=== PATIENT | male | born 1945 | race Caucasian/White ===

== ENCOUNTER → 2017-01-26 | Outpatient (CLI) | payer OTHER, MEDICARE | LOC: BMCIMAGING 13:52 | PROVIDERS: ATTEND Nurse Practitioner Adult Health | DX: J44.9 Chronic obstructive pulmonary disease, unspecified (principal) ==

== ENCOUNTER 2017-01-28 16:04 | Inpatient (IN) | payer OTHER, MEDICARE ==
[2017-01-28] MEDS ORDERED: IPRATROPIUM/ALBUTEROL 3 ML DEYVIAL ONE (16:20)
--- NOTE | 2017-01-28 16:22 | CPEKG ---
Heart Rate: 73 RR Interval: 822 P-R Interval: 184 QRSD Interval: 92 QT Interval: 420 QTC Interval: 463 P [place]: 18 QRS [place]: -45 T Wave [place]: 56 EKG Severity - ABNORMAL ECG - EKG Impression: SINUS RHYTHM EKG Impression: ATRIAL PREMATURE COMPLEX EKG Impression: LAD, CONSIDER LEFT ANTERIOR FASCICULAR BLOCK EKG Impression: ANTEROLATERAL INFARCT, OLD Electronically Signed By: Anne Marie Benedict 28-Jan-2017 22:18:35
[2017-01-28] MEDS ORDERED: IPRATROPIUM/ALBUTEROL 3 ML DEYVIAL IH ONE (16:24)
[2017-01-28 16:31] LABS: % IMMATURE GRANULYOCYTES 0.5 % (0.0-1.1); ABSOLUTE IMMATURE GRANULOCYTES 0.06 10^3/uL (0.00-0.10); ADD DIFF? NO; ADD MORPH? NO; ADD SCAN? NO; ATYPICAL LYMPHOCYTE FLAG 20 (0-99); FRAGMENT RBC FLAG 0 (0-99); HEMATOCRIT 44.7 % (40.0-51.0); HEMOGLOBIN 16.2 g/dL (13.7-17.5); LEFT SHIFT FLG 20 (0-99); LIPEMIA HEMOLYSIS FLAG 90 (0-99); MEAN CELL HEMOGLOBIN 33.3 pg (27.9-34.1); MEAN CELL HEMOGLOBIN CONCENTR. 36.2 g/dL (32.4-36.7); MEAN PLATELET VOLUME 10.5 fL (8.7-11.7); PLATELET CLUMPS FLAG 0 (0-99); PLATELET COUNT 243 10^3/uL (150-400); RED BLOOD CELL COUNT 4.86 10^6/uL (4.40-6.38); RED CELL DISTRIBUTION WIDTH 12.1 % (11.5-15.2)
[2017-01-28 16:42] LABS: ANION GAP 11 mEq/L (8-16); CALCIUM 9.3 mg/dL (8.5-10.4); CARBON DIOXIDE 26 mEq/l (22-31); CHLORIDE 102 mEq/L (97-110); CREATININE 0.9 mg/dL (0.7-1.3); GLOMERULAR FILTRATION RATE > 60; GLUCOSE 115 mg/dL (70-100); POTASSIUM 4.4 mEq/L (3.5-5.2); SODIUM 139 mEq/L (134-144)
--- NOTE | 2017-01-28 16:46 | EDPHY ---
H & P Time Seen by Provider: 01/28/17 16:32 HPI/ROS: CHIEF COMPLAINT: Cough, shortness of breath. HISTORY OF PRESENT ILLNESS: This patient is a healthy 71 year old male complaining of persistent cough and shortness of breath onset one week ago. He was evaluated at urgent care two days ago and prescribed Z-pack but has noted worsening shortness of breath. Chest x-ray at that time was negative for pneumonia. The cough is productive with associated yellow sputum.Associated with rhinorrhea and intermittent mild subjective fever. The shortness of breath is persistent and associated with fatigue and generalized weakness. No nausea or vomiting. He denies history of asthma or emphysema. He received a flu vaccination this year. REVIEW OF SYSTEMS: A 10 point review of systems was performed and is negative with the exception of the elements mentioned in the history of present illness. Past Medical/Surgical History: Hyperlipidemia (Lipitor). Social History: PCP Dr. Barajas. Former smoker, quit 40 years ago. Moderate alcohol use. Lives in [place]. Smoking Status: Never smoked Physical Exam: General Appearance: Alert, mild tachypnea Eyes: Pupils equal and round, no conjunctival pallor or injection ENT, Mouth: Mucous membranes moist Neck: Normal inspection Respiratory: Diffuse expiratory wheezing Cardiovascular: Regular rate and rhythm Gastrointestinal: Abdomen is soft and non-tender Neurological: A&O, nonfocal exam Skin: Warm and dry Extremities: Nontender, no pedal edema Psychiatric: Mood and affect normal Constitutional: Initial Vital Signs Temperature (C) 36.6 C 01/28/17 16:07 Heart Rate 81 01/28/17 16:07 Respiratory Rate 20 01/28/17 16:07 Blood Pressure 165/87 H 01/28/17 16:07 O2 Sat (%) 85 L 01/28/17 16:07 O2 Delivery Mode Oxymask O2 (L/minute) 3 Allergies/Adverse Reactions: amoxicillin [Amoxicillin] Allergy (Intermediate, Verified 07/06/11 16:44) Vomiting Home Medications: Medication Instructions Recorded Atorvastatin Calcium [Lipitor 20 10 mg PO DAILY 01/28/17 mg (*)] Azithromycin [Zithromax] 250 mg PO DAILY@17 01/28/17 Glucosam/Chondr/Collagn/Hyalur 1 each PO DAILY 01/28/17 [Glucosamine & Chondroitin Cap] Medical Decision Making - Diagnostics EKG Interpretation: EKG interpreted by me reveals sinus rhythm, rate 73. PAC, LAD, evidence of old anterolateral infarct. Imaging Results: CXR: LLL infiltrate Imaging: I viewed and interpreted images myself ED Course/Re-evaluation: 71 y/o male presents with one week history of cough and shortness of breath. Exam reveals diffuse wheezes. SpO2 84% at triage. Patient is feeling better following DuoNeb administration. His SpO2 dropped back to 87% when O2 was discontinued. Restarted oxygen by nasal cannula. Plan for additional neb. IV established. Plan for labs including CBC, chemistries, respiratory pathogen PCR , lactic acid, blood cultures. 125mg IV Solu-Medrol given. Discussed admission for management of symptoms due to pneumonia and hypoxia. The patient is comfortable with this plan. Reviewed chest x-ray from 01/26/17, two days ago. Plan for EKG, repeat chest x-ray. Chest x-ray positive for pneumonia. 750mg IV Levaquin given. Does not meet SIRS criteria. RT evaluated pt, given continuous albuterol neb, felt better after neb. Chest: expir wheezing perists, better air exchange 17:51 Consulted with hospitalist service. Dr. Beaver accepts admission for pneumonia and bronchospasm. Differential Diagnosis: includes though not limited to pulm edema, PE, ACS, PTX, bronchitis - Data Points Laboratory Results: Laboratory Results 01/29/17 05:06 01/29/17 05:06 Microbiology Results: MICROBIOLOGY 01/28/17 17:11 Blood Blood Culture - Preliminary 01/28/17 17:30 Blood Blood Culture - Preliminary Medications Given: Albuterol (Proventil Neb) 3 ml IH Q4HRS PRN PRN Reason: Short of Breath/Dyspnea Stop: 07/27/17 18:05 Last Admin: 01/29/17 10:24 Dose: 3 ml Albuterol/Ipratropium (Duoneb) 3 ml IH Q6HRS KATHLEEN Stop: 07/28/17 17:59 Last Admin: 01/31/17 05:37 Dose: 3 ml Atorvastatin Calcium (Lipitor) 10 mg PO DAILY KATHLEEN Stop: 07/28/17 08:59 Last Admin: 01/31/17 09:08 Dose: 10 mg Benzonatate (Tessalon Pearles) 200 mg PO TID PRN PRN Reason: Cough, Mild Stop: 07/28/17 15:59 Last Admin: 01/31/17 09:08 Dose: 200 mg Glucosamine/Chondroitin (Glucosamine/Chondroitin) 1 each PO DAILY [facility] Stop: 07/28/17 08:59 Last Admin: 01/31/17 09:08 Dose: 1 each Guaifenesin/Codeine Phosphate (Robitussin Ac) 10 ml PO Q6HRS PRN PRN Reason: Cough, Moderate Stop: 07/27/17 18:05 Last Admin: 01/31/17 04:17 Dose: 10 ml Levofloxacin (Levaquin) 750 mg PO DAILY AT 10AM KATHLEEN PRN Reason: Protocol Stop: 03/02/17 09:59 Last Admin: 01/31/17 09:08 Dose: 750 mg Prednisone (Prednisone) 40 mg PO DAILY [facility] Stop: 07/28/17 15:59 Last Admin: 01/31/17 09:08 Dose: 40 mg Discontinued Medications Albuterol (Proventil Neb) 3 ml IH EDNOW ONE Stop: 01/28/17 17:02 Last Admin: 01/28/17 17:21 Dose: 3 ml Albuterol/Ipratropium (Duoneb) 3 ml IH EDNOW ONE Stop: 01/28/17 16:25 Last Admin: 01/28/17 17:21 Dose: 3 ml Sodium Chloride (Ns) 1,000 mls @ 0 mls/hr IV ONCE ONE; Wide Open PRN Reason: Protocol Stop: 01/28/17 17:02 Last Admin: 01/28/17 17:22 Dose: 1,000 mls Levofloxacin/Dextrose (Levaquin 750 Mg (Premix)) 150 mls @ 100 mls/hr IV EDNOW ONE PRN Reason: Protocol Stop: 01/28/17 19:16 Last Admin: 01/28/17 19:49 Dose: 150 mls Levofloxacin/Dextrose (Levaquin 750 Mg (Premix)) 150 mls @ 100 mls/hr IV DAILY KATHLEEN PRN Reason: Protocol Stop: 02/28/17 08:59 Last Admin: 01/30/17 09:22 Dose: 150 mls Methylprednisolone Sodium Succinate (Solu-Medrol) 125 mg IVP EDNOW ONE Stop: 01/28/17 17:02 Last Admin: 01/28/17 17:22 Dose: 125 mg Pneumococcal 13-Valent Conj Vacc (Prevnar 13 Syringe) 0.5 ml IM .ONCE ONE Stop: 01/30/17 17:01 Last Admin: 01/30/17 18:41 Dose: 0.5 ml Departure - Departure Disposition: [facility] Inpatient Acute Clinical Impression: Acute hypoxemic respiratory failure Pneumonia Qualifiers: Pneumonia type: due to unspecified organism Laterality: left Lung location: lower lobe of lung Qualified Code(s): J18.1 - Lobar pneumonia, unspecified organism Condition: Fair Report Scribed for: Anne Marie Benedict Report Scribed by: Tonie Chapman Date of Report: 01/28/17 Time of Report: 16:46 Physician Review and Approval Statement: 01/28/17 16:46 Portions of this note were transcribed by a diagnostic medical sonographer. I personally performed a history, physical exam, medical decision making, and confirmed accuracy of information the transcribed note.
[2017-01-28] MEDS ORDERED: ALBUTEROL 3 ML DEYVIAL IH ONE (17:01)
[2017-01-28] MEDS ORDERED: methylPREDNISolone SOD SUCC 125 MG/2 ML VIAL IVP ONE (17:01)
[2017-01-28] MEDS ORDERED: NS 1,000 ML IV ONE (17:01)
[2017-01-28] MEDS ORDERED: ACETAMINOPHEN 325 MG TAB PO PRN (18:05)
[2017-01-28] MEDS ORDERED: ONDANSETRON DISINTEGRATING 4 MG TAB PO PRN (18:05)
[2017-01-28] MEDS ORDERED: ONDANSETRON 4 MG/2 ML VIAL IVP PRN (18:05)
[2017-01-28] MEDS ORDERED: ALBUTEROL 3 ML DEYVIAL IH PRN (18:06)
--- NOTE | 2017-01-28 18:35 | GHP ---
[f rep st] HISTORY AND PHYSICAL DATE OF ADMISSION: 01/28/2017 HISTORY OF PRESENT ILLNESS: The patient is a pleasant 71-year-old gentleman, who enjoys excellent he alth, who presents with cough and increased work of breathing. He has been sick for about 4 or 5 day s. He saw urgent care a couple days ago where he had a chest x-ray, which was apparently negative fo r pneumonia and looking at it now myself I see there is no infiltrate. He was prescribed a Z-Hema at that time. He re-presents today with increased work of breathing and cough as well as low-grade temp eratures and generalized malaise. He was found to be hypoxic at 85% on room air upon presentation. He denies difficulty with swallowing, blackouts. He was a smoker 40 years ago but really only smoked for about 10 years. He has not had heart failure symptoms such as lower extremity edema, PND, or or thopnea. REVIEW OF SYSTEMS: Complete 10-point review of systems conducted, negative except as noted in the HP I. PAST MEDICAL HISTORY: Hyperlipidemia. ALLERGIES: Amoxicillin. HOME MEDICATIONS: Lipitor. SOCIAL HISTORY: Alcohol a couple times a week. No tobacco. Lives in [place]. FAMILY HISTORY: His parents are . PHYSICAL EXAMINATION: VITAL SIGNS: Temp 36.6, blood pressure 165/87, pulse 81, breathing 20 times a minute, 85% on 2 L. GENERAL: Coughing, no acute distress. HEENT: Sclerae anicteric. Oropharynx clear. Mucous membranes are moist. NECK: Supple, without lymphadenopathy or JVD. LUNGS: Rhonchor ous bilaterally. He has some wheezes bilaterally. There are decreased breath sounds at the bases le ft greater than right. HEART: S1, S2. Not tachycardic. ABDOMEN: Soft, nontender, nondistended. LOWER EXTREMITIES: With out edema. Calves are nontender. SKIN: Without rash. NEUROLOGIC: Exam is nonfocal. LABORATORY DATA: White count 13 with a left shift, hematocrit 44, platelets are 243,000. Venous lac saba is 1.4. Chem 7 normal. Glucose 115. Chest x-ray, interpreted by me, shows a left lower lobe and lingular pneumonia. EKG, interpreted by me, shows sinus at 73 with left axis deviation, normal intervals. No ST or T-wav e changes. I have discussed the case with Dr. Carmen Benedict. ASSESSMENT/PLAN: A 71-year-old gentleman who presents with pneumonia and acute hypoxemic respiratory failure. 1. Pneumonia. Left lower lobe community-acquired. We will go ahead and start levofloxacin. 2. Acute hypoxemic respiratory failure. The patient is hypoxic secondary to airspace disease. We w ill provide supplemental oxygen and nebulizers. 3. Cough. He has fairly significant cough, provided with Robitussin. 4. Prophylaxis. Pharmacologic prophylaxis indicated if in the hospital longer than 48 hours. For n ow, will start with SCDs. 5. Hyperlipidemia. Hold the statin. DISPOSITION: Observation status. /[id number]/MODL
[2017-01-28] MEDS: guaiFENesin/CODEINE PHOS 10 ML UDCUP PO PRN (20:51)
[2017-01-29] MEDS: guaiFENesin/CODEINE PHOS 10 ML UDCUP PO PRN ×2 (05:10→15:50)
[2017-01-29 05:31] LABS: % IMMATURE GRANULYOCYTES 0.5 % (0.0-1.1); ABSOLUTE IMMATURE GRANULOCYTES 0.05 10^3/uL (0.00-0.10); ADD DIFF? NO; ADD MORPH? NO; ADD SCAN? NO; ATYPICAL LYMPHOCYTE FLAG 30 (0-99); FRAGMENT RBC FLAG 0 (0-99); HEMATOCRIT 42.1 % (40.0-51.0); HEMOGLOBIN 14.7 g/dL (13.7-17.5); LEFT SHIFT FLG 10 (0-99); LIPEMIA HEMOLYSIS FLAG 90 (0-99); MEAN CELL HEMOGLOBIN 32.5 pg (27.9-34.1); MEAN CELL HEMOGLOBIN CONCENTR. 34.9 g/dL (32.4-36.7); MEAN CELL VOLUME 93.1 fL (81.5-99.8); MEAN PLATELET VOLUME 10.8 fL (8.7-11.7); PLATELET CLUMPS FLAG 10 (0-99); PLATELET COUNT 213 10^3/uL (150-400); RED BLOOD CELL COUNT 4.52 10^6/uL (4.40-6.38)
[2017-01-29 05:41] LABS: ANION GAP 13 mEq/L (8-16); CALCIUM 9.1 mg/dL (8.5-10.4); CARBON DIOXIDE 23 mEq/l (22-31); CHLORIDE 109 mEq/L (97-110); CREATININE 0.8 mg/dL (0.7-1.3); GLOMERULAR FILTRATION RATE > 60; GLUCOSE 200 mg/dL (70-100); POTASSIUM 4.6 mEq/L (3.5-5.2); SODIUM 145 mEq/L (134-144)
[2017-01-29] MEDS: GLUCOSAMINE/CHONDROITIN CAP PO SCH (10:00)
[2017-01-29] MEDS: ATORVASTATIN CALCIUM 10 MG TAB PO SCH (10:00)
--- NOTE | 2017-01-29 15:16 | HOSPPROG ---
Hospitalist Progress Note Assessment/Plan: DIAGNOSES: -Acute interstitial pneumonia with Rhinovirus isolated by PCR; suspect is a viral pneumonia, but secondary bacterial pneumonia not ruled out, less likely non infectious inflammatory pneumonitis -Acute hypoxemic resp failure -smoking history, strongly suspect underlying COPD, no longer smokes PLANS: -Continue empiric abx for now and follow cultures -continue oxygen and resp treatments, will make bronchodilators scheduled -add steroid -yearly flu shot, and see his primary care physician after this admission regarding ensuring he is up-to-date on pneumonia vaccine -in 2-3 months when he is completely resolved from this illness, would get pulmonary function test and possibly other assessments for suspect COPD, with institution of any indicated monitoring and preventive care after that High risk medical condition with acute respiratory failure SUBJECTIVE: Still quite short of breath even with oxygen on and using 4 L, otherwise cough is a little bit less Nurse notes that he was wheezing quite severely earlier today before bronchodilator Greater than 35 min spent with the patient during to visits at the bedside along with nurse for care coordination OBJECTIVE Vitals reviewed: Stable without fever at this time Exam: alert oriented skin warm dry color ok resps still mildly labored lungs diminished breath sounds with some wheeze on expiration, and mildly prolonged expiration heart regular abd soft nondistended nontender, bowel sounds present limbs warm, no edema iv site ok Laboratory data: White blood cell count still high but improved, other some blood cell count and chemistry data stable Culture data: Respiratory pathogen panel positive for rhino virus PCR Blood cultures pending with no growth to date Objective: Vital Signs Temp Pulse Resp BP Pulse Ox 36.9 C 61 16 148/77 H 91 L 01/29/17 12:55 01/29/17 12:55 01/29/17 12:55 01/29/17 12:55 01/29/17 12:55 Laboratory Results 01/29/17 05:06 01/29/17 05:06 01/28/17 01/29/17 01/30/17 06:59 06:59 06:59 Intake Total 550 Balance 550 ICD10 Worksheet Patient Problems: Problems Problem Status Onset Pneumonia Acute
--- NOTE | 2017-01-29 16:12 | PDMN ---
Medical Necessity Medical necessity: C/M review: est. > 2 MN LOS for eval and TX of acute interstitial pneumonia with Rhinovirus isolated by PCR, acute hypoxemic respiratory failure requiring ongoing IV empiric antibiotics, Duonebs, initiate oral steroid, pulse oximetry, supplemental O2, respiratory treatments, comorbid smoking history, suspect underlying COPD per 01/29/2017 Hospitalist progress note.
--- NOTE | 2017-01-29 16:13 | ASMTCMCOM ---
CM Note CM Note Notes: Pt admitted with PNA. Lives with his . No PT/OT orders in chart. CM will follow for any d/c needs. Date Signed: 01/29/2017 04:13 PM Electronically Signed By:ROGER Cruz
[2017-01-29] MEDS: predniSONE 20 MG TAB PO SCH (16:57)
[2017-01-29] MEDS: IPRATROPIUM/ALBUTEROL 3 ML DEYVIAL IH SCH ×2 (19:02→21:43)
[2017-01-30] MEDS: IPRATROPIUM/ALBUTEROL 3 ML DEYVIAL IH SCH ×4 (06:00→22:19)
[2017-01-30] MEDS: predniSONE 20 MG TAB PO SCH (09:25)
[2017-01-30] MEDS: GLUCOSAMINE/CHONDROITIN CAP PO SCH (09:26)
[2017-01-30] MEDS: ATORVASTATIN CALCIUM 10 MG TAB PO SCH (09:26)
[2017-01-30] MEDS ORDERED: PNEUMOC 13-VAL CONJ-DIP CRM/PF 0.5 ML SYR IM ONE ×2 (14:18→17:00)
--- NOTE | 2017-01-30 16:23 | HOSPPROG ---
Hospitalist Progress Note Assessment/Plan: DIAGNOSES: -Acute interstitial pneumonia with Rhinovirus isolated by PCR; suspect is a viral pneumonia, but secondary bacterial pneumonia not ruled out, less likely non infectious inflammatory pneumonitis -Acute hypoxemic resp failure -smoking history, strongly suspect underlying COPD, no longer smokes PLANS: -Continue empiric abx for now and follow cultures -continue oxygen and resp treatments -continue steroid -yearly flu shot, and see his primary care physician after this admission regarding ensuring he is up-to-date on pneumonia vaccine -in 2-3 months when he is completely resolved from this illness, would get pulmonary function test and possibly other assessments for suspect COPD, with institution of any indicated monitoring and preventive care after that High risk medical condition with acute respiratory failure SUBJECTIVE: Less malaise today, better energy and better appetite. However still remains with significant dyspnea on oxygen at rest and a lot of coughing with cough now much more productive OBJECTIVE Vitals reviewed: Stable without fever at this time Exam: alert oriented skin warm dry color ok resps still mildly labored lungs less wheeze and less prolonged expiration, some rales at bases particularly left heart regular abd soft nondistended nontender, bowel sounds present limbs warm, no edema iv site ok Culture data: Respiratory pathogen panel positive for rhino virus PCR Blood cultures pending with no growth to date Objective: Vital Signs Temp Pulse Resp BP Pulse Ox 36.6 C 61 17 137/80 H 91 L 01/30/17 15:53 01/30/17 15:53 01/30/17 15:53 01/30/17 15:53 01/30/17 15:53 01/29/17 01/30/17 01/31/17 06:59 06:59 06:59 Intake Total 2200 450 Balance 2200 450 ICD10 Worksheet Patient Problems: Problems Problem Status Onset Pneumonia Acute
[2017-01-31] MEDS: guaiFENesin/CODEINE PHOS 10 ML UDCUP PO PRN ×3 (04:17→21:27)
[2017-01-31] MEDS: IPRATROPIUM/ALBUTEROL 3 ML DEYVIAL IH SCH ×4 (05:37→20:40)
[2017-01-31] MEDS: predniSONE 20 MG TAB PO SCH (09:08)
[2017-01-31] MEDS: GLUCOSAMINE/CHONDROITIN CAP PO SCH (09:08)
[2017-01-31] MEDS: ATORVASTATIN CALCIUM 10 MG TAB PO SCH (09:08)
[2017-01-31] MEDS: BENZONATATE 100 MG CAP PO PRN ×2 (09:08→21:27)
--- NOTE | 2017-01-31 10:50 | HOSPPROG ---
Hospitalist Progress Note Assessment/Plan: Acute hypoxemic respiratory failure secondary to viral PNA - +rhino/ enterovirus. 3 LPM. Cont nebs, O2, prednisone. Will finish course of Levaquin , change to oral. Outpt PFT's when back to baseline. Full code DVT PPLX - Lovenox Dispo - cont inpt. Possible dc in +/- home O2 Subjective: Pt feels a little better. Still with productive cough and some wheezing. Not ambulating much. No CP or SOB at rest. Non-smoker. Objective: Vital Signs Temp Pulse Resp BP Pulse Ox 36.9 C 59 L 17 116/75 92 01/31/17 08:13 01/31/17 08:13 01/31/17 08:13 01/31/17 08:13 01/31/17 08:13 01/30/17 01/31/17 02/01/17 05:59 05:59 05:59 Intake Total 2200 600 Balance 2200 600 - Physical Exam Constitutional: no apparent distress Eyes: PERRL Ears, Nose, Mouth, Throat: moist mucous membranes Cardiovascular: regular rate and rhythym Respiratory: no respiratory distress, reduced air movement, expiratory wheeze Gastrointestinal: normoactive bowel sounds, soft, non-tender abdomen Skin: warm Musculoskeletal: full muscle strength Neurologic: AAOx3 Psychiatric: interacting appropriately ICD10 Worksheet Patient Problems: Problems Problem Status Onset Acute hypoxemic respiratory failure Acute Pneumonia Acute chronic disease mgmt/transitional care Acute
[2017-01-31] MEDS: ENOXAPARIN 40 MG/0.4 ML SYR SC SCH (12:55)
[2017-02-01] MEDS: IPRATROPIUM/ALBUTEROL 3 ML DEYVIAL IH SCH ×4 (06:21→20:34)
[2017-02-01] MEDS: predniSONE 20 MG TAB PO SCH (09:02)
[2017-02-01] MEDS: GLUCOSAMINE/CHONDROITIN CAP PO SCH (09:02)
[2017-02-01] MEDS: ATORVASTATIN CALCIUM 10 MG TAB PO SCH (09:02)
[2017-02-01] MEDS: ENOXAPARIN 40 MG/0.4 ML SYR SC SCH (09:03)
[2017-02-01] MEDS ORDERED: GUAIFENESIN/DM 10 ML UDCUP PO PRN ×2 (09:51→09:52)
--- NOTE | 2017-02-01 09:54 | HOSPPROG ---
Hospitalist Progress Note Assessment/Plan: Acute hypoxemic respiratory failure secondary to rhino/enterovirus +/- PNA. Suspect underlying COPD given tobacco hx. Currently on 4 LPM. Still quite a bit of wheezing. Cont nebs, O2, prednisone, day 5/5. Will complete short 5 day course of Levaquin, MAR adjusted, last dose tomorrow. Needs outpt PFT's when back to baseline. Likely needs inhalers on discharge. Hyperlipidemia - cont statin Full code DVT PPLX - Lovenox Dispo - cont inpt. May need home O2 Subjective: Pt feels better, didn't cough as much overnight, was able to sleep. Denies fevers/chills. No CP or SOB at rest. He is still coughing quite a bit during my exam with sats low 90's on 4 LPM. Ambulating, appetite good. Objective: Vital Signs Temp Pulse Resp BP Pulse Ox 36.4 C 63 19 122/77 H 93 02/01/17 08:50 02/01/17 08:50 02/01/17 08:50 02/01/17 08:50 02/01/17 08:50 01/31/17 02/01/17 02/02/17 05:59 05:59 05:59 Intake Total 600 2300 Balance 600 2300 - Physical Exam Constitutional: no apparent distress Eyes: PERRL Ears, Nose, Mouth, Throat: moist mucous membranes Cardiovascular: regular rate and rhythym, no murmur, rub, or gallop Respiratory: no respiratory distress, reduced air movement, expiratory wheeze Skin: warm Musculoskeletal: full muscle strength Neurologic: AAOx3 Psychiatric: interacting appropriately ICD10 Worksheet Patient Problems: Problems Problem Status Onset Acute hypoxemic respiratory failure Acute chronic disease mgmt/transitional care Acute Pneumonia Acute
[2017-02-01] MEDS ORDERED: guaiFENesin 600 MG TAB.ER PO SCH (10:00)
[2017-02-01] MEDS: guaiFENesin 600 MG TAB.ER PO SCH ×2 (16:41→21:45)
--- NOTE | 2017-02-01 17:38 | ASMTCMCOM ---
CM Note CM Note Notes: Patient will most likely discharge home on O2 Independent. Patient will be followed by Transitional Care on discharge. Possible discharge on . Case management will follow. Date Signed: 02/01/2017 05:38 PM Electronically Signed By:ROGER Gore
[2017-02-02] MEDS: IPRATROPIUM/ALBUTEROL 3 ML DEYVIAL IH SCH ×2 (05:33→10:15)
[2017-02-02 09:35] VITALS: BP 146/84; RESP 15; TEMP 97.9
[2017-02-02] MEDS: ENOXAPARIN 40 MG/0.4 ML SYR SC SCH (10:06)
[2017-02-02] MEDS: GLUCOSAMINE/CHONDROITIN CAP PO SCH (10:07)
[2017-02-02] MEDS: predniSONE 20 MG TAB PO SCH (10:07)
[2017-02-02] MEDS: guaiFENesin 600 MG TAB.ER PO SCH (10:08)
[2017-02-02] MEDS: ATORVASTATIN CALCIUM 10 MG TAB PO SCH (10:08)
[2017-02-02 10:18] VITALS: PULSE 58; O2SAT 93
--- NOTE | 2017-02-02 11:25 | PDHOMEO2F ---
Home Oxygen Face to Face Home Orders: I certify that a physician or a nurse practitioner or physician's engineering assistant has had a [id number] encounter with this patient on the date of this order due to the diagnosis listed, which relates to the primary reason the patient requires home oxygen. Alternative treatments have been tried, or considered, and deemed ineffective. It is anticipated that supplemental oxygen will result in improvement with treatment. Home oxygen qualifying diagnosis: Suspected COPD Home oxygen secondary diagnosis: Reactive Airway Exacerbation SpO2 on room air (%): 89 Frequency of home oxygen needed: continuous Home oxygen liters per minute: 3 Home oxygen delivery device: nasal cannula Concentrator: Yes E-tanks for mobility and back up: Yes If ordering portable O2, is the patient mobile in the home?: Yes I certify that, based on these findings, the home oxygen is medically necessary for this patient for the following length of time. Length of time home oxygen needed: 1 month
--- NOTE | 2017-02-02 14:01 | ASDISCHSUM ---
Discharge Information Plan Status:Home with No Needs Medically Cleared to Leave: Discharge Date: CM D/C Disposition: ADT D/C Disposition:Home, Routine, Self-Care Projected Discharge Date: Transportation at D/C: Discharge Delay Reason: Follow-Up Date: Discharge Slot: Final Diagnosis: Placement Information Patient Contact Information Contact Name:MOMO Relationship: Address:[address] [place] [address] Work Phone: City:[place] [facility] Phone: State/Zip Code:[place] [address] Email: Financial Information Financial Class: Primary Plan Desc:MEDICARE INPATIENT Primary Plan Number:[id number] Secondary Plan Desc:BERTHA/DOUGLAS SUPPLEMENT Secondary Plan Number:[id number] Assessment Information [facility] CM Progress Note CM Note CM Note Notes: Pt admitted with PNA. Lives with his . No PT/OT orders in chart. CM will follow for any d/c needs. Date Signed: 01/29/2017 04:13 PM Electronically Signed By:ROGER Cruz [facility] CM Progress Note CM Note CM Note Notes: Patient will most likely discharge home on Independent. Patient will be followed by Transitional Care on discharge. Possible discharge on . Case management will follow. Date Signed: 02/01/2017 05:38 PM Electronically Signed By:ROGER Gore Intervention Information
--- NOTE | 2017-02-02 15:53 | PDDCSUM ---
Discharge Summary Discharge Summary: DISCHARGE SUMMARY FOLLOW-UP ITEMS: Outpatient pulmonary function test DATE OF ADMISSION: 01/28/2017 DATE OF DISCHARGE: 02/02/2017 DISCHARGE DIAGNOSES: 1. Acute hypoxic respiratory failure 2. Enterovirus viral syndrome 3. Possible bacterial pneumonia 4. Acute reactive airway exacerbation and possible underlying COPD CONSULTATIONS: None PROCEDURES / IMAGING: Chest x-ray with left lower lobe infiltrate and lingula infiltrate CHIEF COMPLAINT: Cough and shortness of breath SUBJECTIVE: Patient is feeling well at time discharge, he continues to experience a daytime cough PHYSICAL EXAM ON DISCHARGE: Systolic blood pressure is 110-140, heart rate 70-80, afebrile overnight, continues to require 3 L nasal cannula, lungs continue to have some faint expiratory wheezes as well as bronchial breath sounds on expiration, but the patient's breathing does not appear labored, he has no inspiratory rhonchi, his heart rate and rhythm are normal, and he is otherwise well appearing LABS ON DISCHARGE: Rhinovirus and enterovirus positive, white blood cell count [id number] on presentation HOSPITAL COURSE BY PROBLEM: 1. Acute hypoxic respiratory failure. Evidenced by SpO2 of 89% on room air, which is equivalent to a PaO2 of 58, with objective tachypnea respiratory rate of 21, requiring up to 4 L nasal cannula oxygen and pulse oximeter monitoring, secondary to acute reactive airway exacerbation in the setting of viral syndrome and possible bacterial pneumonia. Prior to patient's presentation, he did not require supplemental oxygen, and it should not be considered that the patient had any element of chronic hypoxic respiratory failure. Although the patient's condition stabilized on supplemental oxygen, he will require 3 L nasal cannula at time of discharge and will have his oxygen needs reassessed in the outpatient setting. I recommended outpatient pulmonary function tests which can be ordered through his primary care office after his acute exacerbation has stabilized 2. Acute reactive airway exacerbation. Patient's airways were notably wheezy on expiration with bronchial breath sounds, resulting in the respiratory failure outlined above. He possibly has underlying COPD, with a remote smoking history. He was treated with 5 days of steroids, 5 days of antibiotics, and scheduled duo nebs. Given the patient's airways remained somewhat reactive at time of discharge, he will require to subsequent days of oral steroids, to complete 7 total days. He is currently symptomatically feeling substantially improved, and he feels safe being discharged home with a as needed albuterol inhaler as well as Tessalon Perles. As mentioned above, the patient should have outpatient PFTs after his acute episode has resolved. 3. Viral syndrome. Secondary to enterovirus, likely the precipitant of the above, patient received supportive care. 4. Possible bacterial pneumonia. It is possible that the patient developed a bacterial pneumonia superimposed on his preceding viral syndrome, as evidenced by focal infiltrate on chest x-ray, as well as leukocytosis, responsive to antibiotics. Status post 5 days of levofloxacin. DISCHARGE MEDICATIONS: Please see official discharge medication reconciliation sheet in chart , prednisone 40 mg once daily for 2 subsequent days, as needed albuterol inhaler, as needed Dominik Cazares DISCHARGE INSTRUCTIONS: Please follow up with Dr. Clinton Barajas next week, reassess oxygen needs, outpatient PFTs. TIME SPENT: Greater than 30 minutes were spent on direct patient care, as well as discharge planning and preparation.
== END 2017-02-02 16:05 | disposition home or self-care (01) | DRG 189 ==
LOC: INTOOBSV 17:51 → F1N 20:16 → OBSVTOIN 01-29 16:02
PROVIDERS: ADMIT Internal Medicine; ATTEND Internal Medicine
DX: J96.01 Acute respiratory failure with hypoxia (principal); J44.1 Chronic obstructive pulmonary disease with (acute) exacerbation; J44.0 Chronic obstructive pulmonary disease with (acute) lower respiratory infection; J15.9 Unspecified bacterial pneumonia; J06.9 Acute upper respiratory infection, unspecified; B34.1 Enterovirus infection, unspecified; E78.5 Hyperlipidemia, unspecified; Z87.891 Personal history of nicotine dependence
CPT/HCPCS: 96374; G0009; G0378; J1650; J1956; J2930

== ENCOUNTER → 2017-04-13 | Outpatient (CLI) | payer OTHER, MEDICARE | LOC: FIMAGING 08:55 | PROVIDERS: ATTEND Internal Medicine Critical Care Medicine | DX: Z03.89 Encounter for observation for other suspected diseases and conditions ruled out (principal); J45.909 Unspecified asthma, uncomplicated; I25.10 Atherosclerotic heart disease of native coronary artery without angina pectoris; K76.89 Other specified diseases of liver ==